=== PATIENT | female | born 1950 | race Caucasian/White ===

== ENCOUNTER 2016-11-24 15:46 | Emergency (ER) | payer MEDICARE, OTHER ==
[~2016-11-24] VITALS: Ht 165.1 cm; Wt 94.1 kg
[2016-11-24 15:53] VITALS: BP 101/68; PULSE 65; RESP 18; O2SAT 99
--- NOTE | 2016-11-24 16:14 | ED.REPORT ---
HPI-General Illness Date of Service Nov 24, 2016 ED Provider: Peewee Guajardo MD Patient is a 66 year old female with a history of viral encephalitis who presents to the ED after being referred by her PCP for flu-like symptoms onset 5 days ago. Associated symptoms include weakness, myalgia, chills, headache, fever, and "foggy" thinking. She experienced 2 incidents this week where she slipped off the bed and could not get back up. She denies SOB, chest pain, nausea, vomiting, diarrhea, dysuria, or any other symptoms. Nursing Notes Stated Complaint: FEVER Chief Complaint: FLU/Cold Symptoms Nursing Notes Reviewed: Yes Allergies: Coded Allergies: collagen (Verified Allergy, Mild, 08/30/09) No Known Allergies (Verified , 01/14/04) Uncoded Allergies: No Known Allergies (Allergy, Severe, 01/14/04) Scheduled Ciprofloxacin (Cipro) 500 Mg Tablet 500 MG PO BID General Time Seen by MD: 16:12 Chief Complaint Flu-like illness Hx Obtained From: Patient Arrived By: Walk-in Sudden in Onset?: Yes Onset Occurred: 5 days ago Symptom Duration: Since onset Past Medical History Past Medical History Seizures Hypothroid arthritis Reports: Diabetes mellitus, Hypertension, Denies: Cancer Past Surgical History Bilat partial knee replacement Review of Systems +"foggy" thinking Full Review of Systems Constitutional: Reports: Chills, Fever, Weakness - generalized Respiratory: Denies: Shortness of breath Cardiovascular: Denies: Chest pain GI: Denies: Diarrhea, Nausea, Vomiting Female: Denies: Dysuria Musculoskeletal: Reports: Myalgia Neurologic: Reports: Headache Complete sys rev & neg: except as marked. Physical Exam Vital Signs Vital Signs Date Time Temp Pulse Resp B/P Pulse Ox O2 Delivery O2 Flow Rate FiO2 11/24/16 15:53 37.0 65 18 101/68 99 Room Air Initial VS: Reviewed General/Constitutional: Well-developed, Well-nourished Head / Eyes: Atraumatic, Normocephalic Respiratory: Breath sounds normal, Clear to auscultation, No respiratory distress Cardiovascular: Regular rate & rhythm, Heart sounds normal Skin: Warm, Dry Psychiatric: Mood/affect normal, Behavior normal, Normal thought content Abdomen: Atraumatic, Soft, Non-tender Neurologic: Speech NL, CN II - XII intact Interpretation & Diagnostics Lab Results Interpretation Result Diagram: 11/24/16 1725 11/24/16 1725 Test 11/24/16 16:10 11/24/16 17:25 11/24/16 18:54 Hold Urine Received (Received) White Blood Count 13.3th/mm3 (3.8-10.1) Red Blood Count 3.97mil/mm3 (3.90-5.20) Hemoglobin 12.1g/dL (12.0-15.6) Hematocrit 37.4% (35.0-46.0) Mean Corpuscular Volume 94.2fL (81-100) Mean Corpuscular Hemoglobin 30.5pg (27.0-35.0) Mean Corpuscular Hemoglobin Concent 32.4% (32.0-37.0) Red Cell Distribution Width 13.2% (12.3-15.4) Platelet Count 269bil/L (150-400) Neutrophils (%) (Auto) 76.9% (40-74) Lymphocytes (%) (Auto) 10.8% (14-46) Monocytes (%) (Auto) 11.3% (4-12) Eosinophils (%) (Auto) 0.5% (0-5) Basophils (%) (Auto) 0.2% (0-3) Sodium Level 132mEq/L (134-144) Potassium Level 4.6mEq/L (3.5-5.2) Chloride Level 94mEq/L (97-108) Carbon Dioxide Level 26mmol/L (18-29) Blood Urea Nitrogen 24mg/dL (8-27) Creatinine 0.74mg/dL (0.57-1.00) Estimat Glomerular Filtration Rate 112mL/min (>59) Glucose Level 199mg/dL (60-99) Calcium Level 9.8mg/dL (8.5-10.1) Total Bilirubin 0.4mg/dL (0.0-1.2) Aspartate Amino Transf (AST/SGOT) 26U/L (0-50) Alanine Aminotransferase (ALT/SGPT) 41U/L (0-32) Alkaline Phosphatase 77U/L (25-165) Total Protein 6.7g/dL (6.4-8.4) Albumin 3.7g/dL (3.4-5.0) Hold Gallo Top Tube Received (Received) Urine Color Yellow (YELLOW) Urine Appearance Cloudy (CLEAR,HAZY) Urine pH 5.5 (5.0-8.0) Urine Specific [place] 1.020 (1.003-1.035) Urine Protein Tracemg/dL (NEG,TRACE) Urine Glucose (UA) Negativemg/dL (NEGATIVE) Urine Ketones Tracemg/dL (NEGATIVE) Urine Occult Blood Small (NEGATIVE) Urine Nitrite Positive (NEGATIVE) Urine Bilirubin Negative (NEGATIVE) Urine Urobilinogen 1.0mg/dL (NORMAL) Urine Leukocyte Esterase Moderate (NEGATIVE) Urine RBC 3-10/hpf (0-2) Urine WBC >50/hpf (0-5) Urine Epithelial Cells Many/hpf (NONE-MOD) Urine Crystals None seen (NONE SEEN) Urine Bacteria Moderate/hpf (NONE-FEW) Urine Hyaline Casts None/lpf (NONE) Urine Granular Casts None seen (NONE SEEN) Urine Waxy Casts None seen (NONE SEEN) Urine Red Blood Cell Casts None seen (NONE SEEN) Urine White Blood Cell Casts None seen (NONE SEEN) Urine Mucus None seen (None Seen) Urine Trichomonas None seen (NONE SEEN) Urine Yeast None (NONE SEEN) Urinalysis Comment None Urine Culture Reflexed Indicated Discharge & Departure Primary Impression: Pyelonephritis Disposition: Home Patient Instructions: Acute Pyelonephritis (ED) Additional Instructions: You have a bladder/kidney infection. Start the oral antibiotics tomorrow afternoon as directed. You may get a call when the culture is available in 1-3 days to adjust the antibiotic. Drink plenty of fluid and get extra rest. Use ibuprofen 800mg every 8 hours and /or Tylenol 1000mg every 6 hours as needed for pain or fever. Return to the ER if you are feeling worse or cannot take the medication. Referrals: Mere Mayes MD (PCP) Lizandro Bustamante DO Scribe Attestation Portions of this note were transcribed by Mel Cheng. I, Dr. Guajardo personally performed the history, physical exam and medical decision-making; I reviewed and confirmed the accuracy of the information in the transcribed note. Signed by: Mel Cheng 11/24/16, 1832 copies to: Lizandro Bustamante Kirk H MD Nov 24, 2016 16:14 MEL CHENG Nov 24, 2016 17:50
[2016-11-24 17:36] LABS: BASOPHILS % (AUTO) 0.2 % (0-3); EOSINOPHILS % (AUTO) 0.5 % (0-5); MONOCYTES % (AUTO) 11.3 % (4-12); Mean Corpuscular Hemoglobin 30.5 pg (27.0-35.0); Mean Corpuscular Volume 94.2 fL (81-100); NEUTROPHILS % (AUTO) 76.9 % (40-74); Platelet Count 269 bil/L (150-400)
[2016-11-24] MEDS ORDERED: cefTRIAXone Inj 2,000 MG in IV Premix 1 EACH IV ONE (19:40)
[2016-11-24 19:42] LABS: APPEARANCE,URINE CLOUDY (CLEAR,HAZY); COLOR,URINE YELLOW (YELLOW); OCCULT BLOOD,URINE SMALL (NEGATIVE); PH,URINE 5.5 (5.0-8.0)
[2016-11-24] MEDS ORDERED: CIPR-231 PO (19:52)
[2016-11-24] MEDS ORDERED: cefTRIAXone Inj 2,000 MG in Dextrose 5% Minibag Plus 50 ML IV ONE (19:53)
== END 2016-11-24 20:53 | disposition home or self-care (01) ==
LOC: SED 15:46
DX: N10 Acute pyelonephritis (principal); B96.20 Unspecified Escherichia coli [E. coli] as the cause of diseases classified elsewhere; I10 Essential (primary) hypertension; E11.9 Type 2 diabetes mellitus without complications; Z86.19 Personal history of other infectious and parasitic diseases
CPT/HCPCS: 36415; 80053; 81000; 81002; 85025; 87086; 87088; 87186; 96365; 99284; J0696